=== PATIENT | female | born 1970 | race Caucasian/White ===

== ENCOUNTER → 2017-08-24 | Outpatient (CLI) | payer BC ==
[~2017-08-24] MED LIST: FERR-26 PO; LEVO175T2 PO; LISD30CA5 PO; OXYC10TA PO
[2017-08-24 14:44] LABS: BASO # 0.1 x10^3/uL (0.0-0.2); BASO % 1 % (0-3); EOS % 1 % (0-3); HEMATOCRIT 35.4 % (36.0-47.0); HEMOGLOBIN 11.1 g/dL (12.0-15.5); LYMPH # 2.1 x10^3/uL (1.0-4.8); LYMPH % 24 % (24-48); MEAN CORPUSCULAR HEMOGLOBIN 21 pg (25-35); MEAN CORPUSCULAR HGB CONC 31 g/dL (31-37); MEAN CORPUSCULAR VOLUME 68 fL (79-100); MONO % 4 % (0-9); NEUT % 70 % (31-73); PLATELET COUNT 420 x10^3/uL (140-400); WHITE BLOOD COUNT 8.5 x10^3/uL (4.0-11.0)
[2017-08-24 15:03] LABS: ALBUMIN 3.1 g/dL (3.4-5.0); ALBUMIN/GLOBULIN RATIO 0.8 (1.0-1.7); CREATININE 0.6 mg/dL (0.6-1.0); GFR 106.7; POTASSIUM 3.1 mmol/L (3.5-5.1); TOTAL BILIRUBIN 0.3 mg/dL (0.2-1.0)
[2017-08-24 17:21] LABS: ANISOCYTOSIS SLIGHT; HYPOCHROMIA MOD; MICROCYTOSIS MARKED; PLT ESTIMATE INCREASED (ADEQUATE); POIKILOCYTOSIS SLIGHT
[2017-08-24 17:23] LABS: OVALOCYTES OCC
== END | disposition home or self-care (01) ==
LOC: SURGPAT 13:27
PROVIDERS: ATTEND Obstetrics & Gynecology
DX: Z01.818 Encounter for other preprocedural examination (principal); N92.0 Excessive and frequent menstruation with regular cycle
CPT/HCPCS: 36415; 80053; 85025

== ENCOUNTER 2017-08-30 10:25 | Observation (INO) | payer BC ==
[~2017-08-30] VITALS: Ht 157.5 cm; Wt 78.9 kg
[~2017-08-30 10:25] MED LIST changes: +HYDROmorphone 2 MG/ML VIAL IV PRN; +IV RINGERS,LACTATED 1000ML 1,000 ML IV SCH; +LIDOCAINE 1% PF 2 ML VIAL. ID PRN; +MORPHINE SULFATE 4 MG/ML DISP.SYRIN. IV PRN; +ONDANSETRON PF 4 MG/2 ML VIAL. IV PRN; +PROCHLORPERAZINE 10 MG/2 ML VIAL. IV PRN; +fentaNYL PF VIAL 100 MCG/2 ML VIAL IV PRN
[2017-08-30] MEDS ORDERED: BUPIVACAINE-EPI 0.25%-1:200000 50 ML VIAL. ONE (12:28)
[2017-08-30] MEDS ORDERED: ESTROGENS, CONJ VAGINAL CREAM 30GM TUBE. ONE (12:28)
[2017-08-30] MEDS ORDERED: LIDOCAINE 2% PF Vial for OR 5 ML VIAL. ONE (12:30)
[2017-08-30] MEDS ORDERED: FAMOTIDINE 20 MG/2 ML VIAL ONE (12:30)
[2017-08-30] MEDS ORDERED: ONDANSETRON PF 4 MG/2 ML VIAL. ONE (12:30)
[2017-08-30] MEDS ORDERED: PROPOFOL 20 ML IV ONE (12:30)
[2017-08-30] MEDS ORDERED: ROCURONIUM 50 MG/5 ML VIAL. ONE (12:30)
[2017-08-30] MEDS ORDERED: DEXAMETHASONE SOD PHOS 20 MG/5 ML VIAL. ONE (12:30)
[2017-08-30] MEDS ORDERED: MIDAZOLAM HCL/PF 2 MG/2 ML VIAL. ONE (12:31)
[2017-08-30] MEDS ORDERED: fentaNYL PF VIAL 100 MCG/2 ML VIAL ONE ×3 (12:31→15:29)
[2017-08-30] MEDS ORDERED: fentaNYL PF VIAL 100 MCG/2 ML VIAL IV PRN ×2 (12:45)
[2017-08-30 12:51] LABS: NEG OBC UR NEG; POS OBC UR POS
[2017-08-30] MEDS ORDERED: PHENYLEPHRINE in 0.9% NACL PF 1 MG/10 ML DISP.SYRIN. IV ONE (12:52)
[2017-08-30] MEDS ORDERED: GLYCOPYRROLATE 1 MG/5 ML VIAL. ONE (14:11)
[2017-08-30] MEDS ORDERED: NEOSTIGMINE 10 MG/10 ML VIAL. ONE (14:11)
[2017-08-30] MEDS ORDERED: SEVOFLURANE 61 TO 120 MINUTES. IH ONE (14:38)
--- NOTE | 2017-08-30 14:51 | PDOC ---
BRIEF OPERATIVE NOTE Date: Aug 30, 2017 Pre-Op Diagnosis menorrhagia, fibroid uterus Post-Op Diagnosis same, L ovarian cyst Procedure Performed lavh and bso Surgeon Miguel Window Cleaner Devendra Anesthesiologist Stiven Anesthesia Type: General Blood Loss 300cc IV Fluid see anesthesia Urine Output 285cc Specimens Obtained uterus, tubes, ovaries Findings see dictation Complications none ROSSANA HARRIS MD Aug 30, 2017 14:51
--- NOTE | 2017-08-30 14:52 | DISCH ---
DISCHARGE INSTRUCTIONS Condition on Discharge Condition on Discharge: Stable Activity After Discharge Activity Instructions for Disc: Avoid exertion, Progressive ambulation, Walk in house Lifting Instructions after Dis: No heavy lifting, No pulling or pushing, Do not lift >10 pounds, Add. restrict see below (nothing in the vagina for 6 weeks) Driving Instructions after Dis: No driving for 2 weeks Weight Bearing Status after Di: Full weight bearing Diet after Discharge Diet after Discharge: Regular Contacting the DRYun after DC Call your doctor for: If your condition worsens Follow-Up Follow up with: Dr. Harris in 1 week ROSSANA HARRIS MD Aug 30, 2017 14:52
[2017-08-30] MEDS ORDERED: ESTRADIOL WEEKLY 0.1 MG PATCH. TD ONE (15:00)
[2017-08-30] MEDS ORDERED: SIMETHICONE 80 MG TAB.CHEW PO PRN (15:00)
[2017-08-30] MEDS ORDERED: diphenhydrAMINE 50 MG/ML VIAL IV PRN (15:00)
[2017-08-30] MEDS ORDERED: ZOLPIDEM 5 MG TABLET. PO PRN (15:00)
[2017-08-30] MEDS ORDERED: oxyCODONE/APAP 5/325 1 TAB TABLET PO PRN (15:00)
[2017-08-30] MEDS ORDERED: NALOXONE 0.4 MG/ML VIAL. IV PRN (15:00)
[2017-08-30] MEDS ORDERED: METOCLOPRAMIDE HCL 10 MG/2 ML VIAL. IV PRN (15:00)
[2017-08-30] MEDS ORDERED: 0.9 % SODIUM CHLORIDE 10 ML DISP.SYRIN. IV PRN (15:00)
[2017-08-30] MEDS ORDERED: IBUPROFEN 600 MG TABLET. PO PRN (15:00)
[2017-08-30] MEDS ORDERED: KETOROLAC 30 MG/ML INJ. IV PRN (15:00)
[2017-08-30] MEDS ORDERED: HYDROmorphone 2 MG/ML VIAL IV PRN (15:00)
[2017-08-30] MEDS ORDERED: MAG HYDROX/ALUMINUM HYD/SIMETH 30 ML ORAL.SUSP PO PRN (15:00)
[2017-08-30] MEDS ORDERED: CALCIUM CARBONATE 500 MG TAB.CHEW PO PRN (15:00)
[2017-08-30] MEDS ORDERED: LACTULOSE 20 GM/30 ML SOLUTION. PO PRN (15:00)
[2017-08-30] MEDS ORDERED: diphenhydrAMINE HCL 25 MG CAPSULE PO PRN (15:00)
[2017-08-30] MEDS ORDERED: HYDROmorphone 2 MG/ML VIAL IM PRN (15:00)
[2017-08-30] MEDS ORDERED: ONDANSETRON PF 4 MG/2 ML VIAL. IV PRN (15:00)
[2017-08-30] MEDS ORDERED: BISACODYL 10 MG SUPP.RECT. PR PRN (15:00)
--- NOTE | 2017-08-30 15:32 | OP ---
DATE OF SURGERY: 08/30/2017 PREOPERATIVE DIAGNOSES: Menorrhagia, fibroids seen on ultrasound and pelvic pain. POSTOPERATIVE DIAGNOSES: Menorrhagia, fibroids seen on ultrasound, pelvic pain, left ovarian cyst. PROCEDURE: LAVH and BSO. SURGEON: Ghazala Harris M.D. and Devendra. ANESTHESIA: General. COMPLICATIONS: None. ESTIMATED BLOOD LOSS: About 300 mL. INTRAVENOUS FLUIDS: Please see the anesthesia summary. URINE OUTPUT: 285 mL. SPECIMENS: Uterus, tubes, and ovaries. DESCRIPTION OF PROCEDURE: After informed consent was obtained, the patient was taken to the operating room and given a smooth induction of anesthesia without complications. Her abdomen, perineum, and vagina were prepped and draped in the usual sterile fashion. She received 2 grams of Ancef prior to the procedure onset. Her legs were placed in Colby stirrups and her perineum and vagina were prepped and draped in the usual fashion. A Salinas catheter was placed. A bivalve speculum was placed in the vagina and the anterior lip of the cervix was grasped with a single tooth tenaculum. The Valtchev was placed through the cervical os and attached to the tenaculum. The speculum was then removed. I changed gloves and then went above. A 5 mm incision was made at the umbilicus. The bladeless trocar was placed onto this incision. The camera confirmed good trocar placement. The patient was then placed in Trendelenburg. Two lateral ports were also placed after transillumination of the abdominal wall. The uterus was noted to be enlarged with a fibroid in the right cornu. There was a left ovarian cyst that appeared to be simple cyst. After placing the 2 lateral ports, we elevated the round ligament on the right side and cauterized across it with the LigaSure. The same was done on the left side. We then elevated the tube and ovary on the right. We visualized the ureter and then were able to cauterize across the infundibulopelvic ligament on the right side to free the ovary and tube from the sidewall. Same procedure was carried out on the left. However, we were not able to see the ureter on this side because of the extremely fatty tissue along the pelvic sidewall. Once the tube and ovary were free from the sidewall we were able to cauterize across the branches of the uterine vessels going down the sides of the uterus. Once this was complete down to the level of the uterosacral ligament, we removed the instruments from up top and went down below. Speculum was placed in the vagina and a circumferential incision was made around the cervix. The tenaculum and Valtchev were replaced by 2 Marialuisa thyroid clamps. Again, we created a circumferential incision around the cervix. The bladder was retracted superiorly using blunt dissection. During this dissection we got into a little bit of bleeding and this was where most of our blood loss came from. There was a large vessel that was gushing blood. We were able to clamp it and tie it off with a suture tie. We entered the posterior peritoneum using sharp dissection. This peritoneum was tagged to the posterior vaginal wall and saved for later use. We then placed a Joshua speculum intraperitoneally. We then proceeded to clamp, cut and ligate the uterosacral ligaments. These were then tacked to the lateral vaginal sidewalls and saved for later use. These were tied off with Ismael transfixion sutures. We then proceeded to clamp, cut and ligate using the LigaSure the remaining vessels of the remaining branches of the uterine vessels on both sides. Once the uterus was free, it was removed from the field. We then closed the peritoneum using a running pursestring suture of 2-0 Vicryl and closed the vaginal cuff with a running locking stitch of 2-0 Vicryl. At this point, we changed gloves and went back above to irrigate the pelvis. The pelvis was irrigated. No active bleeding was noted. We sprayed Tisseel on all the raw surfaces. Again, no active bleeding was noted. We even let some of the pressure out to make sure there was no bleeding. At this point, the ports were removed under direct visualization. The port sites were closed with an interrupted suture of 4-0 nylon and infiltrated with anesthetic for patient comfort. The patient tolerated the procedure well. There were no complications. GHAZALA HARRIS MD DR: DIANA/praful JOB#: [id number] / [id number]
[2017-08-30] MEDS: fentaNYL PF VIAL 100 MCG/2 ML VIAL IV PRN ×3 (15:35→16:20)
[2017-08-30 16:45] VITALS: BP 95/61
[2017-08-30 17:00] VITALS: BP 95/61
[2017-08-30 17:30] VITALS: BP 99/60
[2017-08-30 19:12] VITALS: BP 90/47
[2017-08-30] MEDS: HYDROcodone/APAP 5/325MG 1 TAB TABLET PO PRN (20:19)
[2017-08-30 22:51] VITALS: BP 105/63
[2017-08-31 05:45] VITALS: BP 97/59
[2017-08-31] MEDS: HYDROcodone/APAP 5/325MG 1 TAB TABLET PO PRN (05:54)
[2017-08-31] MEDS ORDERED: LEVOTHYROXINE 175 MCG TABLET PO SCH (07:00)
[2017-08-31] MEDS ORDERED: FERROUS SULFATE 325 MG TABLET. PO SCH (08:00)
--- NOTE | 2017-08-31 10:14 | PDOC ---
SURGICAL PROGRESS NOTE Subjective Doing well. NO complaints. Pain managed with oral pain meds. Ambulating and tolerating regular diet Vital Signs Vital Signs Date Time Temp Pulse Resp B/P (MAP) Pulse Ox O2 Delivery O2 Flow Rate FiO2 08/31/17 05:45 98.3 87 18 97/59 (72) 97 Room Air 98.3 08/30/17 16:45 2.0 I&O Intake and Output 08/31/17 07:00 Intake Total 2650 ml Output Total 1135 ml Balance 1515 ml Intake Oral 600 ml IV Total 2050 ml Output Urine Total 835 ml Estimated Blood Loss 300 ml # Voids 1 PATIENT HAS A COLLINS: No General: Alert, Oriented X3, Cooperative, No acute distress HEENT: Mucous membr. moist/pink Abdomen: Normal bowel sounds, Soft, No tenderness, No hepatosplenomegaly, No masses, Other (incisions c/d/i) Extremities: No clubbing, No cyanosis, No edema, Normal pulses, No tenderness/ swelling Labs Laboratory Tests Test 08/30/17 10:40 08/30/17 11:00 Urine Test Negative (NEG) Hematocrit 37.0 % (36.0-47.0) Potassium Level 3.5 mmol/L (3.5-5.1) Laboratory Tests Test 08/30/17 10:40 08/30/17 11:00 Urine Test Negative (NEG) Hematocrit 37.0 % (36.0-47.0) Potassium Level 3.5 mmol/L (3.5-5.1) I have reviewed the following labs, vitals Problem List pod#1 from [facility] and bso Assessment/Plan Plan for discharge Problems: ROSSANA HARRIS MD Aug 31, 2017 10:14
--- NOTE | 2017-08-31 10:17 | PDOC3 ---
Discharge Summary Visit Information Date of Admission: Aug 30, 2017 Date of Discharge: Aug 31, 2017 Admitting Diagnosis: menorrhagia and enlarged fibroid uterus , pelvic pain Final Diagnosis same Brief Hospital Course Allergies Allergies Coded Allergies Type Severity Reaction Last Updated Verified No Known Drug Allergies 08/30/17 No Vital Signs Vital Signs Date Time Temp Pulse Resp B/P (MAP) Pulse Ox O2 Delivery O2 Flow Rate FiO2 08/31/17 05:45 98.3 87 18 97/59 (72) 97 Room Air 98.3 08/30/17 16:45 2.0 Lab Results Laboratory Tests Test 08/30/17 10:40 08/30/17 11:00 Urine Test Negative (NEG) Hematocrit 37.0 % (36.0-47.0) Potassium Level 3.5 mmol/L (3.5-5.1) Laboratory Tests Test 08/30/17 10:40 08/30/17 11:00 Urine Test Negative (NEG) Hematocrit 37.0 % (36.0-47.0) Potassium Level 3.5 mmol/L (3.5-5.1) Brief Hospital Course Ms. Gomez is a 47 old F who presented with pelvic pain, menorrhagia and fibroid seen on US. She underwent lavh and bso yesterday. She tolerated the procedure well. Today she is ambulating, voiding and tolerating her diet. She is ready for discharge. Her hct is 37 Discharge Information Condition at Discharge: Improved Follow Up: Weeks (1 week in office) Disposition/Orders: D/C to Home Scheduled Ferrous Sulfate (Ferrous Sulfate), 1 TAB PO DAILY, (Reported) Levothyroxine Sodium (Synthroid), 1 TAB PO DAILY, (Reported) Lisdexamfetamine Dimesylate (Vyvanse), 1 CAP PO DAILY07, (Reported) Discontinued Medications Oxycodone Hcl (Oxycodone Hcl), 10 MG PO for PAIN, (Reported) Patient Instructions Patient Instructions See list ROSSANA HARRIS MD Aug 31, 2017 10:17
[2017-08-31 10:40] VITALS: BP 106/55
--- NOTE | 2017-09-03 09:50 | PATHOLOGY ---
PATHOLOGY REPORT * * * * * * * * FINAL DIAGNOSIS: Uterus and attached bilateral fallopian tubes, laparoscopic-assisted vaginal hysterectomy with bilateral salpingo-oophorectomy: - Mild chronic cervicitis, focal. - Nabothian cysts, cervix. - Leiomyomas (2), uterine corpus, subserosal, the largest measuring 5.2 cm in greatest dimension (uterine weight 165 grams). - Disordered proliferative endometrium. - Status post bilateral tubal ligation, with proximal hydrosalpinx. - Few small cystic follicles and multiple small serous inclusion cysts of right ovary. - Follicle cyst and multiple small serous inclusion cysts of left ovary. Comment: There is no evidence of malignancy. (JPM:mml; 08/31/2017) REPORT ELECTRONICALLY SIGNED BY: Kj Diggs M.D. DATE/TIME: 09/03/2017 08:31 * * * * * * * * GROSS PATHOLOGY: Received in formalin labeled "Jabier Patricia, uterus with cervix, bilateral fallopian tubes" is a hysterectomy specimen with attached fallopian tubes and ovaries. The uterus weighs 165 g and measures 12.0 cm from fundus to cervix, 6.5 cm from cornu to cornu, and 4.5 cm from anterior to posterior. The serosa is pink-pantoja and smooth with a subserosal leiomyoma on the posterior aspect measuring 5.2 x 4.0 x 3.5 cm. The cervical os is ovoid and measures 1.8 x 1.0 cm. The ectocervix is pink-pantoja and glistening and is ragged along the posterior aspect. The cervix is probe patent and the uterus is opened to reveal a 5.0 x 3.0 cm endometrial cavity and a 3.5 x 1.5 cm endocervical canal. The average endometrial thickness is 0.2 cm and the average myometrial thickness is 1.6 cm. The leiomyoma is serially sectioned to reveal a pantoja-white whorled cut surface without hemorrhage or necrosis. The right fimbriated fallopian tube measures 7.7 cm in length and ranges from 0.5-1.2 cm in diameter. The fallopian tube has a white round plastic surgical sterilization device measuring 0.5 cm in diameter and 0.3 cm in length, located approximately in the mid tube. The fallopian tube proximal to the device is dilated and filled with clear watery fluid. Upon sectioning, a dilated lumen is identified in the proximal and mid fallopian tube and a pinpoint lumen is identified in the distal fallopian tube. The right ovary weighs 5 g and measures 2.5 x 2.3 x 1.2 cm. The external surface is pantoja-white and cerebriform and the ovary is serially sectioned to reveal a pantoja-white grossly unremarkable cut surface with a thin walled simple cyst measuring 0.8 x 0.8 x 0.5 cm. No papillary excrescences are identified. The left fimbriated fallopian tube measures 6.7 cm in length and ranges from 0.5-1.3 cm in diameter. The fallopian tube has a white round plastic surgical sterilization device measuring 0.5 cm in diameter and 0.3 cm in length, located approximately in the mid tube. The fallopian tube proximal to the device is dilated and filled with clear watery fluid. Upon sectioning, a dilated lumen is identified within the proximal and mid fallopian tube and a pinpoint lumen is identified in the distal fallopian tube. The left ovary weighs 3 g and measures 4.0 x 2.0 x 1.0 cm. The external surface is pantoja-white and cerebriform and the ovary is serially sectioned to reveal a previously ruptured thin walled simple cyst measuring 1.8 x 1.8 x 1.0 cm. No papillary excrescences are identified. Can Striper sections of the specimen are submitted as follows: A1 12:00 cervix A2 6:00 cervix A3 anterior endomyometrium A4 posterior endomyometrium A5 life assurance representative leiomyoma A6 life assurance representative right fallopian tube A7 life assurance representative right ovary A8 life assurance representative left fallopian tube A9 life assurance representative left ovary ([facility] [place]; 08/30/2017) INITIAL CPT CODE(S): A; 11485 Professional services performed by [facility] at [address] [address] Technical services performed by [facility] AND [employer] at [address] [place] [address], [address], [place] [address]. SPECIMEN(S) RECEIVED: A.Uterus with cervix, bilateral fallopian tubes CLINICAL HISTORY: Fibroids, metrorrhagia, menorrhagia PATIENT: JABIER PAK /AGE: 906/20/1970 (Age: 47) PATIENT #: [id number] ALT CASE #: SPECIMEN COLLECTION DATE: 08/30/2017 SPECIMEN RECEIVED DATE: 08/30/2017 [facility] - [id number] [address] - PHONE: [phone] * * * END OF REPORT * * *
== END 2017-08-31 12:00 | disposition home or self-care (01) ==
LOC: SURG 10:25 → 3 NORTH 16:10
PROVIDERS: ADMIT Obstetrics & Gynecology; ATTEND Obstetrics & Gynecology
DX: D25.2 Subserosal leiomyoma of uterus (principal); N72 Inflammatory disease of cervix uteri; N88.8 Other specified noninflammatory disorders of cervix uteri; N83.202 Unspecified ovarian cyst, left side; N92.0 Excessive and frequent menstruation with regular cycle
CPT/HCPCS: 36415; 58552; 81025; 84132; 85014; 86850; 86900; 86901; 88307; 96374; C1769; G0378; G0379; J0690; J1100; J1885; J2250; J2370; J2405; J2704; J2710; J3010; J3490; J7030; J7120; S0028; J2001